=== PATIENT | female | born 1955 | race Caucasian/White ===

== ENCOUNTER 2018-08-04 13:17 | Outpatient (CLI) | payer OTHER ==
--- NOTE | 2018-08-04 14:31 | RAD ---
RIGHT HIP 2 VIEWS: HISTORY: Hip pain. FINDINGS: Thee are degenerative changes of the hip. There is spurring along the lateral margin of the acetabul um. Minimal joint space narrowing. No fracture. IMPRESSION: Mild arthritic changes of the hip. POS: TPC
== END 2018-08-04 13:18 | disposition home or self-care (01) ==
LOC: TBSIIMAG 13:17
PROVIDERS: ATTEND Surgery
DX: M48.061 Spinal stenosis, lumbar region without neurogenic claudication (principal); M54.16 Radiculopathy, lumbar region; M54.5 Low back pain; M25.559 Pain in unspecified hip; M16.11 Unilateral primary osteoarthritis, right hip

== ENCOUNTER 2018-09-20 06:02 | Day surgery (SDC) | payer OTHER ==
[2018-09-19 10:29] VITALS: BMI 37.4
[2018-09-20] MEDS ORDERED: Fentanyl 100 MCG/2 ML VIAL ONE ×4 (06:26→11:07)
[2018-09-20] MEDS ORDERED: Bacitracin Zinc Ointment 30 gm TUBE ONE (06:40)
[2018-09-20] MEDS ORDERED: Sodium Chloride 0.9% 10 ML ONE (06:40)
[2018-09-20] MEDS ORDERED: Thrombin 5000 UNITS/5 ML VIAL ONE (06:41)
[2018-09-20 06:44] LABS: #Basophils 0.1 thou/uL (0.0-0.2); #Eosinphils 0.2 thou/uL (0.0-0.7); #Lymphocytes 2.3 thou/uL (1.20-3.40); #Monocytes 0.6 thou/uL (0.11-0.59); #Neutrophils 5.5 thou/uL (1.40-6.50); %Basophils 1.7 % (0.0-1.0); %Eosinophils 2.6 % (0.0-10.0); %Lymphocytes 26.8 % (21.0-51.0); %Monocytes 6.5 % (0.0-10.0); %Neutrophils 62.5 % (42.0-75.0); Hemoglobin 15.2 g/dL (12.0-16.0); Mean Corpuscular HGB CONC 32.7 g/dL (32.0-36.0); Mean Corpuscular Hemoglobin 30.4 pg (27.0-31.0); Mean Corpuscular Volume 92.9 fL (78.0-98.0); Mean Platelet Volume 6.4 fL (7.4-10.4); Platelet Count 301 thou/uL (130-400); RBC Distribution Width 11.3 % (11.5-14.5); Red Blood Cell (RBC) Count 5.02 mill/uL (4.20-5.40); White Blood Cell (WBC) Count 8.7 thou/uL (4.8-10.8)
[2018-09-20 06:50] LABS: INR-International Normal Ratio 0.9; PTT 27.6 SEC (22.9-36.1); Prothrombin Time 12.6 SEC (12.0-14.7)
[2018-09-20 07:08] LABS: Anion Gap 13 mmol/L (10-20); BUN (Urea Nitrogen) 20 mg/dL (9.8-20.1); Calc. Creatinine Clearance 125 mL/min (70-130); Calcium 9.6 mg/dL (7.8-10.44); Carbon Dioxide 23 mmol/L (23-31); Chloride 108 mmol/L (98-107); Estimated GFR-MDRD 80; Glucose 150 mg/dL (80-115); Potassium 4.1 mmol/L (3.5-5.1); Sodium 140 mmol/L (136-145)
[2018-09-20] MEDS ORDERED: Acetaminophen/Codeine 30-300mg Tablet PO PRN (10:10)
[2018-09-20] MEDS ORDERED: Promethazine HCl 25 MG/ML VIAL IVPB PRN (10:10)
[2018-09-20] MEDS ORDERED: Bisacodyl 10 MG SUPP PR PRN (10:10)
[2018-09-20] MEDS ORDERED: Milk Of Magnesia 30 ML UDCUP PO PRN (10:10)
[2018-09-20] MEDS ORDERED: Fleet Enema 133 ML BOT PR PRN (10:10)
[2018-09-20] MEDS ORDERED: Morphine 2 MG/ML SYRINGE SLOW IVP PRN (10:10)
[2018-09-20] MEDS ORDERED: Acetaminophen 325 MG TAB PO PRN (10:10)
[2018-09-20] MEDS ORDERED: traMADol HCl 50 MG TAB PO PRN (10:10)
[2018-09-20] MEDS ORDERED: Mag-Al 1200 mg/1200 mg/30 ML UDCUP PO PRN (10:10)
[2018-09-20] MEDS ORDERED: tiZANidine HCl 4 MG TAB PO PRN ×2 (10:10→13:32)
[2018-09-20] MEDS ORDERED: Ketorolac Tromethamine 30 MG/ML VIAL IVP PRN (10:11)
[2018-09-20] MEDS ORDERED: Morphine Sulfate 2 MG/ML SYRINGE SLOW IVP PRN (10:11)
[2018-09-20] MEDS ORDERED: HYDROmorphone 2 MG/ML VIAL SLOW IVP PRN (10:11)
[2018-09-20] MEDS ORDERED: Meperidine HCl/PF 25 MG/ML VIAL SLOW IVP PRN (10:11)
[2018-09-20] MEDS ORDERED: Ondansetron HCl/PF 4 MG/2 ML Vial IVP PRN (10:11)
[2018-09-20] MEDS ORDERED: Promethazine HCl 25 MG/ML VIAL SLOW IVP PRN (10:11)
[2018-09-20] MEDS ORDERED: Promethazine HCl 25 MG/ML VIAL IM PRN (10:11)
[2018-09-20] MEDS ORDERED: Ketorolac Tromethamine 30 MG/ML VIAL ONE (10:32)
--- NOTE | 2018-09-20 10:33 | OP ---
DATE OF PROCEDURE: 09/20/2018 PERSONNEL CLERK: Thiago Power PA-C PREPROCEDURE DIAGNOSIS: Low back and right leg pain with right L4-L5 stenosis synovial cyst with right L5-S1 stenosis synovial cyst. POSTPROCEDURE DIAGNOSIS: Low back and right leg pain with right L4-L5 stenosis synovial cyst with right L5-S1 stenosis synovial cyst. PROCEDURES PERFORMED: 1. Right L4-L5 diskectomy with synovial cyst resection. 2. Right L5-S1 hemilaminotomy, foraminotomy with decompression of the right S1 nerve root. 3. Use of operative microscope for microdissection. DESCRIPTION OF PROCEDURE: After informed consent was obtained from the patient, the patient was brought to the OR. Proper patient, pause, and identification were carried out. She was placed under excellent general endotracheal anesthesia and positioned prone on the OR table. All appropriate points were padded. The midline lumbar wound was drawn out and this region was sterilely cleansed, prepared and draped. Proper patient, pause, and identification were carried out. The wound was then opened with a combination of sharp, monopolar, and blunt dissection and proceeded over the L4-L5 and L5-S1 segments on the right side, exposing the hemilamina and facet capsules. Localization film confirmed area of interest. We then brought the microscope in the right L4-L5 and right L5-S1, and hemilaminotomies and foraminotomies were performed. There was small amount of disk extruded material on the right L4-L5 and this was removed. There was also remnants of synovial cyst as well at the right L4-L5 that was not as clear in the preoperative MRI. This was removed. I then turned our attention to right L5-S1 segment and completely decompressed the right S1 nerve root as there was facet hypertrophy in this region. Copious irrigation occurred throughout as did maximizing hemostasis. The wound was then closed in anatomic layers following sprinkling of vancomycin powder. The patient then emerged from anesthesia. Job ID: [id number]
[2018-09-20] MEDS ORDERED: Promethazine HCl 12.5 MG in Sodium Chloride 0.9% 50 ML IVPB PRN (10:39)
[2018-09-20] MEDS ORDERED: Meperidine HCl/PF 25 MG/ML VIAL ONE (11:49)
[2018-09-20] MEDS: Sodium Chloride 0.9% 1,000 ML IV SCH ×2 (12:33→23:31)
[2018-09-20] MEDS: HYDROcodone/Acetaminophen 7.5/325 mg Tablet PO PRN ×3 (13:07→22:16)
[2018-09-20] MEDS ORDERED: PROPOFOL 200 MG/20 ML VIAL ONE (13:59)
[2018-09-20] MEDS ORDERED: Rocuronium Bromide 10 MG/ML (10ML VIAL) ONE (13:59)
[2018-09-20] MEDS ORDERED: PHENYLEPHRINE-NS 100 MCG/ML 10 ML SYRINGE ONE (13:59)
[2018-09-20] MEDS ORDERED: Lidocaine 1% PF 5 ML VIAL ONE (13:59)
[2018-09-20] MEDS ORDERED: Ondansetron PF 4 MG/2 ML Vial ONE (13:59)
[2018-09-20] MEDS ORDERED: Dexamethasone 20 MG/5 ML VIAL ONE (13:59)
[2018-09-20] MEDS ORDERED: Glycopyrrolate 0.2 MG/ML 5 ML SYRINGE ONE (13:59)
[2018-09-20] MEDS ORDERED: ePHEDrine 50 MG/ML VIAL ONE (13:59)
[2018-09-20] MEDS: Gabapentin 300 MG CAP PO SCH ×2 (15:03→20:53)
[2018-09-20] MEDS: CEFAZOLIN 2 GM in Premix Bag 1 BAG IVPB SCH ×2 (15:04→22:18)
[2018-09-20] MEDS ORDERED: Rosuvastatin 20 MG TAB PO SCH (21:00)
[2018-09-21] MEDS: HYDROcodone/Acetaminophen 7.5/325 mg Tablet PO PRN ×2 (04:22→10:48)
[2018-09-21] MEDS ORDERED: Levothyroxine Sodium 50 MCG TAB PO SCH (06:00)
[2018-09-21] MEDS ORDERED: Liothyronine Sodium 25 MCG TAB PO SCH (06:00)
[2018-09-21] MEDS: Gabapentin 300 MG CAP PO SCH (07:32)
[2018-09-21] MEDS ORDERED: Lisinopril 2.5 MG TAB PO SCH (09:00)
[2018-09-21] MEDS ORDERED: Hydrochlorothiazide 25 MG TAB PO SCH (09:00)
--- NOTE | 2018-09-21 10:05 | PRG ---
DATE OF SERVICE: 09/21/2018 SUBJECTIVE: Ms. Ramon Johnson is now postop day 1 from lumbar decompression. She is doing well with improvement in her leg pain. She does have some swelling in her right leg that she states was there preoperatively. We will get an ultrasound of the right lower extremity just to rule out any type of deep venous thrombosis, although I do not suspect that we will find one. However, obviously with recent surgery, she is at risk. We went over do's and don'ts in the postoperative period and pending ultrasound results, she will be dismissed. Job ID: [id number]
--- NOTE | 2018-09-21 10:28 | ULT ---
US Venous Doppler Rt Unilat HISTORY: EXAM: Right lower extremity venous ultrasound HISTORY: Right lower extremity pain and edema COMPARISON: None TECHNIQUE: Multiplanar grayscale and color Doppler images were obtained in a right lower extremity ve nous ultrasound. Spectral analysis of the Doppler waveforms were performed. FINDINGS: The common femoral vein, profunda femoral vein, superficial femoral vein, and popliteal vei n are normal in appearance without visible thrombus. These vessels demonstrate normal compression, flow, and augmentation. The posterior tibial vein and greater saphenous vein are patent without evidence of DVT. IMPRESSION: No evidence of right lower extremity DVT.
[2018-09-21 11:39] VITALS: BP 99/63; TEMP 98.1
[2018-09-21] MEDS: Sodium Chloride 0.9% 1,000 ML IV SCH (11:55)
== END 2018-09-21 12:54 | disposition home or self-care (01) ==
LOC: SDC 06:02 → 2SW 10:10 → SDC 09-21 12:54
PROVIDERS: ATTEND Surgery
PROC: 0QB00ZZ Excision of Lumbar Vertebra, Open Approach (ICD-10-PCS; principal; 2018-09-20)
PROC: 01NB0ZZ Release Lumbar Nerve, Open Approach (ICD-10-PCS; principal; 2018-09-20)
DX: M48.061 Spinal stenosis, lumbar region without neurogenic claudication (principal); M71.38 Other bursal cyst, other site; M54.16 Radiculopathy, lumbar region; Z79.899 Other long term (current) drug therapy
CPT/HCPCS: 36415; 76000; 80048; 85025; 85610; 85730; 93005; 93010; J0690; J1100; J1885; J2001; J2175; J2405; J2550; J2704; J3010; J3370; J3490; J7050

== ENCOUNTER 2019-02-21 08:58 | Outpatient (CLI) | payer OTHER ==
[2019-02-21 09:54] LABS: Estimated GFR-MDRD - POC Greater than 90
--- NOTE | 2019-02-21 12:37 | MRI ---
MRI LUMBAR SPINE WITH AND WITHOUT CONTRAST: 02/21/2019 HISTORY: Right hip and back pain. Prior lumbar spine surgery. COMPARISON: None. TECHNIQUE: Multiplanar, multisequence MR imaging of the lumbar spine provided with and without contrast. FINDINGS: The sagittal STIR imaging demonstrates no focal area of osseous marrow edema. On the basis of five lumbar type vertebral bodies, the conus medullaris terminates at the L1 level. T12-L1: Mild bilateral facet hypertrophy and mild anterior osteophyte formation. No significant reanna tral canal or neural foraminal stenosis. L1-L2: Mild bilateral facet hypertrophy. No significant central canal or neural foraminal stenosis. L2-L3: Bilateral facet hypertrophy. There is disk space narrowing and disk desiccation with mild di sk bulge. There is a left foraminal and post foraminal disk protrusion. There is mild left neural f oraminal stenosis. No significant central canal or right neural foraminal stenosis. L3-L4: Mild disk bulge. There is a small foraminal/post foraminal disk protrusion on the left causi ng a mild degree of left neural foraminal stenosis. No significant central canal or right neural for aminal stenosis. L4-L5: There is prominent bilateral facet hypertrophy with fluid within bilateral facet joints, righ t greater than left. There are medially projecting osteophytes and thickening of the ligamentum flav um on the left. There is moderate/severe right neural foraminal stenosis, mild left neural foraminal stenosis, and a moderate degree of left lateral recess stenosis. L5-S1: Severe bilateral facet hypertrophy. There is central canal stenosis, primarily on the basis of prominent epidural lipomatosis. Mild bilateral neural foraminal stenosis. The post contrast imaging demonstrates enhancement of the posterior paraspinal musculature on the rig ht. This is seen posterior to the thecal sac on the right, at the axial level of the S1 vertebral aracely dy, posterior to the thecal sac, at the axial level of the L5 vertebral body, and posterior to and in volving the right facet joint at the L4-L5 and L5-S1 levels. This enhancement suggests a combination of postoperative scar and enhancing granulation tissue, on the basis of degenerative change of the r ight L4-L5 and L5-S1 facet joints. The post contrast imaging demonstrates no abnormal enhancement involving the nerve roots of the cauda equina or the intervertebral disks. Imaged retroperitoneal structures demonstrate no acute findings. IMPRESSION: Multilevel postoperative and degenerative change within the lumbar spine, as described above. POS: OFF
== END 2019-02-21 08:59 | disposition home or self-care (01) ==
LOC: TBSIIMAG 08:58
PROVIDERS: ATTEND Physician Assistant Surgical
DX: M47.26 Other spondylosis with radiculopathy, lumbar region (principal); Z98.890 Other specified postprocedural states
CPT/HCPCS: 72158; 82565